=== PATIENT | female | born 2000 | race Caucasian/White ===

== ENCOUNTER 2024-06-12 08:06 | Emergency (ER) | payer MEDICAID ==
[~2024-06-12] VITALS: Ht 165.1 cm; Wt 83.2 kg
[2024-06-12 08:08] VITALS: BP 120/70; PULSE 82; RESP 15; TEMP 98.3; O2SAT 98
[2024-06-12] MEDS ORDERED: AMOX500C25 PO (08:29)
[2024-06-12] MEDS ORDERED: DEXAMETHASONE 10 MG/ML VIAL ONE (08:30)
[2024-06-12] MEDS: DEXAMETHASONE 10 MG/ML VIAL IM ONE (08:35)
== END 2024-06-12 08:45 | disposition home or self-care (01) ==
LOC: MED 08:06
DX: J02.9 Acute pharyngitis, unspecified (principal); R13.10 Dysphagia, unspecified; J45.909 Unspecified asthma, uncomplicated; Z79.899 Other long term (current) drug therapy
CPT/HCPCS: 87081; 96372; 99283; J1100